=== PATIENT | male | born 2000 | race Two or more races ===

== ENCOUNTER 2022-03-03 10:24 | Emergency (ER) | payer SELFPAY ==
[~2022-03-03] VITALS: Ht 172.7 cm; Wt 69.0 kg
[2022-03-03 10:34] VITALS: BP 164/50
[2022-03-03] MEDS ORDERED: KETOROLAC 60MG/2ML VIAL IM ONE (11:00)
[2022-03-03] MEDS ORDERED: NAPR-681 MT (11:59)
== END 2022-03-03 12:35 | disposition home or self-care (01) ==
LOC: ER 10:42
DX: M79.652 Pain in left thigh (principal); X58.XXXA Exposure to other specified factors, initial encounter; Y93.02 Activity, running; Y92.89 Other specified places as the place of occurrence of the external cause
CPT/HCPCS: 73552; 96372; 99283; L1830